=== PATIENT | male | born 1960 | race African-American/Black ===

== ENCOUNTER 2016-09-13 00:10 | Emergency (ER) | payer MEDICAID, OTHER ==
[~2016-09-13] VITALS: Ht 188 cm; Wt 104.0 kg
[2016-09-13] MEDS ORDERED: TRAMADOL 50MG TABLET PO ONE (01:00)
[2016-09-13 01:14] LABS: BASOPHILS % 0.4 % (0.0-2.0); EOSINOPHILS % 1.1 % (0.0-5.0); HEMATOCRIT. 39.7 % (42.0-52.0); HEMOGLOBIN. 13.3 g/dL (14.0-18.0); LYMPHOCYTES % 30.5 % (20.0-50.0); MEAN CORPUSCULAR HEMOGLOBIN 28.1 pg (28.0-32.0); MEAN CORPUSCULAR VOLUME 83.8 fL (80.0-94.0); MEAN PLATELET VOLUME 8.7 fl (7.4-10.4); MONOCYTES % 7.9 % (2.0-8.0); NEUTROPHILS % 60.1 % (40.0-76.0); PLATELET 261 x1000/uL (130-400); RED BLOOD CELL COUNT 4.74 mill/uL (4.7-6.1); RED CELL DISTRIBUTION WIDTH 13.7 % (11.6-14.6)
[2016-09-13 01:22] LABS: PARTIAL THROMBOPLASTIN TIME 32.4 sec (24.0-34.0); PROTHROMBIN TIME 10.2 sec
[2016-09-13 01:33] LABS: CARBON DIOXIDE 27 mEq/L (21-32); CHLORIDE 105 mEq/L (98-107); TROPONIN I < 0.02 ng/mL (0.00-0.04)
[2016-09-13 02:05] VITALS: BP 138/72
== END 2016-09-13 02:42 | disposition home or self-care (01) ==
LOC: ER 00:20
DX: R07.89 Other chest pain (principal); E11.9 Type 2 diabetes mellitus without complications; M19.90 Unspecified osteoarthritis, unspecified site; K21.9 Gastro-esophageal reflux disease without esophagitis; F17.210 Nicotine dependence, cigarettes, uncomplicated; Z98.890 Other specified postprocedural states; Z85.9 Personal history of malignant neoplasm, unspecified
CPT/HCPCS: 36415; 71010; 80053; 83880; 84484; 85025; 85610; 85730; 93005; 99285; Z7610

== ENCOUNTER 2022-05-01 03:04 | Emergency (ER) | payer MEDICAID, OTHER ==
[~2022-05-01] VITALS: Ht 188 cm; Wt 105.1 kg
[2022-05-01 03:12] VITALS: BP 147/76
[2022-05-01] MEDS ORDERED: TETANUS AND DIPHTHERIA TOX/PF 0.5ML SYR (ADULT) IM ONE (07:00)
[2022-05-01] MEDS ORDERED: AMOX1TAB16 MT (08:09)
== END 2022-05-01 08:44 | disposition home or self-care (01) ==
LOC: ER 03:04
DX: S01.511A Laceration without foreign body of lip, initial encounter (principal); I10 Essential (primary) hypertension; E11.9 Type 2 diabetes mellitus without complications; Y04.0XXA Assault by unarmed brawl or fight, initial encounter; Y93.89 Activity, other specified; Y92.89 Other specified places as the place of occurrence of the external cause; Y99.8 Other external cause status
CPT/HCPCS: 12011; 90714; 99282

== ENCOUNTER 2023-07-25 17:26 | Emergency (ER) | payer MEDICAID ==
[~2023-07-25] VITALS: Ht 190.5 cm; Wt 82.0 kg
[~2023-07-25 17:26] MED LIST: AMOX1TAB16 MT
[2023-07-25 17:37] VITALS: BP 125/83; PULSE 82; RESP 16; TEMP 98.7; O2SAT 99
== END 2023-07-25 20:37 | disposition left against medical advice (07) ==
LOC: ER 17:26
DX: J02.9 Acute pharyngitis, unspecified (principal); Z53.21 Procedure and treatment not carried out due to patient leaving prior to being seen by health care provider
CPT/HCPCS: 99281